=== PATIENT | male | born 1940 | race Hispanic/Latino ===

== ENCOUNTER → 2019-06-01 | Outpatient (CLI) | payer MEDICARE ==
--- NOTE | 2019-06-01 17:12 | Diagnostic Imaging Report ---
Exam: Modified barium swallow Clinical history: Dysphasia Total fluoroscopy time 2 minutes Total images greater than 30 Findings: Modified barium swallow was performed by the speech pathologist. Radiologist was not present. Please refer to the speech pathology report for further details. Signed by: Dr. Gabriel Mcdonough MD on 06/01/2019 5:09 PM
== END ==
LOC: DX 11:55
PROVIDERS: ATTEND Psychiatry & Neurology Clinical Neurophysiology
DX: R13.10 Dysphagia, unspecified (principal)
CPT/HCPCS: 74230